=== PATIENT | female | born 1980 | race Caucasian/White ===

== ENCOUNTER 2020-09-23 21:19 | Emergency (ER) | payer OTHER ==
[~2020-09-23] VITALS: Ht 157.5 cm; Wt 70.3 kg
[2020-09-23 21:44] VITALS: Ht 157.5 cm; Wt 70.3 kg
[2020-09-24 00:47] VITALS: BP 122/74
== END 2020-09-24 00:47 | disposition home or self-care (01) ==
LOC: ED 21:19
DX: F41.9 Anxiety disorder, unspecified (principal); Z91.041 Radiographic dye allergy status; Z91.013 Allergy to seafood
CPT/HCPCS: J7030